=== PATIENT | male | born 1955 | race Caucasian/White ===

== ENCOUNTER → 2023-09-11 09:52 | Outpatient (BNVA) | payer MEDICARE, OTHER, SELFPAY | PROVIDERS: PCP Family Medicine; Referring Provider Family Medicine; Visit Provider Specialist | DX: G31.84 Mild cognitive impairment of uncertain or unknown etiology (principal); G43.711 Chronic migraine without aura, intractable, with status migrainosus | CPT/HCPCS: 0346U; 36415; 82542; 99205 ==

== ENCOUNTER 2023-10-13 12:55 | Outpatient (CLI) | payer MEDICARE, OTHER, SELFPAY ==
--- NOTE | 2023-10-13 13:00 | MR_ITS ---
WS: [id number] MRI BRAIN WITHOUT CONTRAST HISTORY: G31.84 - Mild cognitive impairment of uncertain or unknow... COMPARISON: None available. TECHNIQUE: Diffusion imaging, multiplanar T1, T2 and FLAIR imaging obtained. Diffusion imaging is normal. There is marked cerebral atrophy. Most significant involving the tempora l and frontal lobes. The atrophy is symmetric. Mild small vessel ischemic changes in the white matter . Very mild hippocampal atrophy. Slightly greater CSF adjacent to the RIGHT hippocampal formation. No hemorrhage. Ventricles and extra-axial spaces are prominent on the basis of atrophy. No inferior displacement of cerebellar tonsils. The sella turcica and pituitary gland are unremarkabl e. Dural venous sinuses and [place] demonstrate no abnormality on this unenhanced studies. Paranasal sinuses: Small mucous retention cyst RIGHT maxillary sinus. Mastoid air cells: Normal. Calvarium and scalp: Intact. IMPRESSION: 1. No acute infarct or hemorrhage. 2. Moderate cerebral atrophy greatest involving the frontal and temporal lobes. 3. Mild hippocampal formation atrophy, RIGHT greater than LEFT. 4. Mild small vessel ischemic type changes. No large territory infarct.
== END 2023-10-13 12:56 | disposition home or self-care (01) ==
LOC: RAD 12:55
PROVIDERS: PCP Family Medicine; Visit Provider Specialist
DX: G31.84 Mild cognitive impairment of uncertain or unknown etiology (principal); G43.711 Chronic migraine without aura, intractable, with status migrainosus
CPT/HCPCS: 70551; 99214

== ENCOUNTER → 2024-12-29 13:26 | Outpatient (BNVA) | payer MEDICARE, OTHER, SELFPAY | PROVIDERS: PCP Family Medicine; Visit Provider Specialist | DX: G31.84 Mild cognitive impairment of uncertain or unknown etiology (principal); R29.90 Unspecified symptoms and signs involving the nervous system; G43.711 Chronic migraine without aura, intractable, with status migrainosus | CPT/HCPCS: 36415; 83520; 99214 ==